=== PATIENT | female | born 1985 | race Caucasian/White ===

== ENCOUNTER → 2023-07-06 09:49 | Outpatient (BNVA) | payer MEDICAID, SELFPAY | PROVIDERS: PCP Nurse Practitioner Family; Visit Provider Nurse Practitioner Family | DX: R53.83 Other fatigue (principal); I10 Essential (primary) hypertension; M54.2 Cervicalgia; Z87.42 Personal history of other diseases of the female genital tract; M50.30 Other cervical disc degeneration, unspecified cervical region; L03.90 Cellulitis, unspecified; F41.9 Anxiety disorder, unspecified | CPT/HCPCS: 80053; 80061; 84443; 84481; 85025 ==